=== PATIENT | female | born 1990 | race Two or more races ===

== ENCOUNTER 2020-10-06 22:32 | Emergency (ER) | payer BC ==
[2020-10-06 23:00] VITALS: BMI 21.6
[2020-10-07] MEDS ORDERED: SODIUM CHLORIDE 1,000 ML IV STA ×2 (01:23→02:05)
[2020-10-07 02:20] LABS: BASO % 0.1 % (0-2.0); EOS % 0.7 % (0-4.5); HEMATOCRIT 32.6 % (32.4-45.2); HEMOGLOBIN 10.9 GM/dL (10.7-15.3); LYMPH % 27.4 % (8-40); MCH 27.9 pg (25.7-33.7); MCHC 33.6 g/dl (32.0-36.0); MEAN CELL VOLUME 82.9 fl (80-96); MEAN PLT VOLUME 7.9 fl (7.5-11.1); MONO % 5.9 % (3.8-10.2); NEUT % 65.9 % (42.8-82.8); PLATELET COUNT 302 K/MM3 (134-434); RBC 3.93 M/mm3 (3.60-5.2); RDW 14.5 % (11.6-15.6); WHITE BLOOD COUNT 13.9 K/mm3 (4.0-10.0)
[2020-10-07 02:40] LABS: POTASSIUM 3.9 mmol/L (3.5-5.1)
[2020-10-07 02:42] LABS: ALBUMIN 3.7 g/dl (3.4-5.0); CALCIUM 8.8 mg/dL (8.5-10.1)
[2020-10-07 02:43] LABS: BLOOD UREA NITROGEN 9.7 mg/dL (7-18)
[2020-10-07 02:46] LABS: CREATININE 0.6 mg/dL (0.55-1.3)
[2020-10-07 02:47] LABS: BILIRUBIN,TOTAL 0.4 mg/dL (0.2-1); TOT PROT 7.1 g/dl (6.4-8.2)
[2020-10-07 03:22] VITALS: BP 95/61; PULSE 75; TEMP 99.4
== END 2020-10-07 03:31 | disposition short-term general hospital (02) ==
LOC: FER 22:32
PROC: 3E0337Z Introduction of Electrolytic and Water Balance Substance into Peripheral Vein, Percutaneous Approach (ICD-10-PCS; principal; 2020-10-06)
PROC: 3E0337Z Introduction of Electrolytic and Water Balance Substance into Peripheral Vein, Percutaneous Approach (ICD-10-PCS; 2020-10-06)
DX: N93.9 Abnormal uterine and vaginal bleeding, unspecified (principal)
CPT/HCPCS: 36415; 76830-TC; 80053; 85025; 99285-25